=== PATIENT | female | born 1935 | race Two or more races ===

== ENCOUNTER 2017-10-17 09:29 | Outpatient (CLI) | payer OTHER ==
[~2017-10-17] VITALS: Ht 152.4 cm; Wt 68.0 kg
== END 2017-10-17 09:45 | disposition home or self-care (01) ==
LOC: OFIC 805 09:29
DX: R42 Dizziness and giddiness (principal); H90.3 Sensorineural hearing loss, bilateral; E04.1 Nontoxic single thyroid nodule

== ENCOUNTER → 2017-10-17 | Outpatient (CLI) | payer OTHER ==
[~2017-10-17] MED LIST: BACTROBAN OINT22 GM TP; CATAFLAM50 MG PO; CLEOCIN HCL300 MG PO
== END | disposition home or self-care (01) ==
LOC: SONOGRAMA 12:22
DX: E04.1 Nontoxic single thyroid nodule (principal)

== ENCOUNTER 2017-11-07 09:43 | Outpatient (CLI) | payer OTHER ==
[~2017-11-07] VITALS: Ht 152.4 cm; Wt 68.0 kg
== END 2017-11-07 10:00 | disposition home or self-care (01) ==
LOC: OFIC 805 09:43
DX: H90.3 Sensorineural hearing loss, bilateral (principal); R42 Dizziness and giddiness; E04.1 Nontoxic single thyroid nodule

== ENCOUNTER 2017-11-10 09:29 | Outpatient (CLI) | payer OTHER | END 2017-11-10 09:42 | disposition home or self-care (01) | LOC: SONOGRAMA 09:29 | DX: E04.2 Nontoxic multinodular goiter (principal) ==

== ENCOUNTER → 2017-11-28 | Outpatient (CLI) | payer OTHER ==
[~2017-11-28] VITALS: Ht 152.4 cm; Wt 68.0 kg
== END | disposition home or self-care (01) ==
LOC: OFIC 805 08:05
DX: E04.2 Nontoxic multinodular goiter (principal)

== ENCOUNTER → 2017-12-15 | Outpatient (CLI) | payer OTHER | END | disposition home or self-care (01) | LOC: PPH VACUNA 15:06 | DX: Z23 Encounter for immunization (principal) | CPT/HCPCS: 90472; 90674; 90715; G0008 ==

== ENCOUNTER 2018-04-03 09:35 | Outpatient (CLI) | payer OTHER ==
[~2018-04-03] VITALS: Ht 152.4 cm; Wt 68.0 kg
== END 2018-04-03 09:50 | disposition home or self-care (01) ==
LOC: OFIC 805 09:35
DX: H90.3 Sensorineural hearing loss, bilateral (principal); H61.23 Impacted cerumen, bilateral; J31.0 Chronic rhinitis

== ENCOUNTER 2018-04-29 12:03 | Outpatient (CLI) | payer OTHER | END 2018-04-29 12:07 | disposition home or self-care (01) | LOC: MAMO-SONO 12:03 → OFIC 805 08-31 08:00 | DX: Z12.31 Encounter for screening mammogram for malignant neoplasm of breast (principal); Z87.898 Personal history of other specified conditions; N64.4 Mastodynia ==

== ENCOUNTER 2018-07-31 10:15 | Outpatient (CLI) | payer OTHER ==
[~2018-07-31] VITALS: Ht 152.4 cm; Wt 68.0 kg
== END 2018-07-31 10:30 | disposition home or self-care (01) ==
LOC: OFIC 805 10:15
DX: H61.23 Impacted cerumen, bilateral (principal); H90.3 Sensorineural hearing loss, bilateral; J31.0 Chronic rhinitis

== ENCOUNTER 2018-12-04 10:01 | Outpatient (CLI) | payer OTHER ==
[~2018-12-04] VITALS: Ht 152.4 cm; Wt 68.0 kg
== END 2018-12-04 10:15 | disposition home or self-care (01) ==
LOC: OFIC 805 10:01
DX: J31.0 Chronic rhinitis (principal); H61.23 Impacted cerumen, bilateral; H90.3 Sensorineural hearing loss, bilateral; R42 Dizziness and giddiness

== ENCOUNTER 2018-12-29 05:50 | Day surgery (SDC) | payer OTHER ==
[~2018-12-29 05:50] MED LIST changes: +ALENDRONATE SOD70 MG PO; +AMILODIPINE PO; +ASA81 MG PO; +BENAZEPRIL HCL10 MG PO; +PRAVACHOL80 MG PO; +SINGULAIR10 MG PO; +TIROSINT50 MCG PO
== END 2018-12-29 10:30 | disposition home or self-care (01) ==
LOC: CIR.AMB 05:50
DX: G56.01 Carpal tunnel syndrome, right upper limb (principal)

== ENCOUNTER 2019-03-10 11:07 | Outpatient (CLI) | payer OTHER | END 2019-03-10 11:13 | disposition home or self-care (01) | LOC: NUCLEAR 11:07 | DX: M81.0 Age-related osteoporosis without current pathological fracture (principal) ==

== ENCOUNTER 2019-04-09 10:56 | Outpatient (CLI) | payer OTHER | END 2019-04-09 11:09 | disposition home or self-care (01) | LOC: RAD 10:56 | DX: M17.0 Bilateral primary osteoarthritis of knee (principal) ==

== ENCOUNTER 2019-04-09 11:42 | Outpatient (CLI) | payer OTHER | END 2019-04-09 13:00 | disposition home or self-care (01) | LOC: SONOGRAMA 11:42 | DX: M65.811 Other synovitis and tenosynovitis, right shoulder (principal) ==

== ENCOUNTER 2019-04-30 09:36 | Outpatient (CLI) | payer OTHER | END 2019-04-30 09:46 | disposition home or self-care (01) | LOC: MAMO-SONO 09:36 | DX: Z12.31 Encounter for screening mammogram for malignant neoplasm of breast (principal); Z87.898 Personal history of other specified conditions; N64.4 Mastodynia ==

== ENCOUNTER → 2019-10-04 | Outpatient (CLI) | payer OTHER | END | disposition home or self-care (01) | LOC: RAD 13:23 | DX: M20.42 Other hammer toe(s) (acquired), left foot (principal); M20.41 Other hammer toe(s) (acquired), right foot ==

== ENCOUNTER 2020-05-01 12:22 | Outpatient (CLI) | payer OTHER | END 2020-05-01 12:34 | disposition home or self-care (01) | LOC: MAMO-SONO 12:22 | PROVIDERS: ATTEND General Practice | DX: Z12.31 Encounter for screening mammogram for malignant neoplasm of breast (principal); N64.4 Mastodynia ==

== ENCOUNTER 2021-01-29 12:56 | Outpatient (CLI) | payer OTHER | END 2021-01-29 13:15 | disposition home or self-care (01) | LOC: MRI 12:56 | DX: M23.301 Other meniscus derangements, unspecified lateral meniscus, left knee (principal); M23.303 Other meniscus derangements, unspecified medial meniscus, right knee; M23.002 Cystic meniscus, unspecified lateral meniscus, unspecified knee | CPT/HCPCS: 73721 ==

== ENCOUNTER 2021-03-29 14:36 | Outpatient (CLI) | payer OTHER | END 2021-03-29 14:43 | disposition home or self-care (01) | LOC: NUCLEAR 14:36 | PROVIDERS: ATTEND General Practice | DX: M81.0 Age-related osteoporosis without current pathological fracture (principal) ==

== ENCOUNTER 2021-05-03 14:13 | Outpatient (CLI) | payer OTHER | END 2021-05-03 14:51 | disposition home or self-care (01) | LOC: MAMO-SONO 14:13 | PROVIDERS: ATTEND General Practice | DX: Z12.31 Encounter for screening mammogram for malignant neoplasm of breast (principal); N64.4 Mastodynia; N64.59 Other signs and symptoms in breast ==

== ENCOUNTER 2021-07-24 12:41 | Outpatient (CLI) | payer OTHER | END 2021-07-24 12:49 | disposition home or self-care (01) | LOC: MRI 12:41 | PROVIDERS: ATTEND Physical Medicine & Rehabilitation | DX: M47.897 Other spondylosis, lumbosacral region (principal); M54.16 Radiculopathy, lumbar region | CPT/HCPCS: 72148 ==

== ENCOUNTER → 2021-08-22 | Outpatient (CLI) | payer OTHER | END | disposition home or self-care (01) | LOC: TOM 08:59 | PROVIDERS: ATTEND Internal Medicine | DX: K76.0 Fatty (change of) liver, not elsewhere classified (principal); Q61.02 Congenital multiple renal cysts; R10.84 Generalized abdominal pain; F06.2 Psychotic disorder with delusions due to known physiological condition | CPT/HCPCS: 74177; Q9965 ==

== ENCOUNTER 2021-10-26 14:02 | Outpatient (CLI) | payer OTHER | END 2021-10-26 14:10 | disposition home or self-care (01) | LOC: RAD 14:02 | PROVIDERS: ATTEND Physical Medicine & Rehabilitation | DX: M25.571 Pain in right ankle and joints of right foot (principal); M25.572 Pain in left ankle and joints of left foot ==

== ENCOUNTER 2021-12-18 13:04 | Outpatient (CLI) | payer OTHER | END 2021-12-18 14:00 | disposition home or self-care (01) | LOC: MRI 13:04 | PROVIDERS: ATTEND Internal Medicine | DX: I63.9 Cerebral infarction, unspecified (principal) | CPT/HCPCS: 70551 ==

== ENCOUNTER 2022-05-22 14:48 | Outpatient (CLI) | payer OTHER | END 2022-05-22 14:49 | disposition home or self-care (01) | LOC: MAMO-SONO 14:48 | DX: Z12.31 Encounter for screening mammogram for malignant neoplasm of breast (principal); N60.11 Diffuse cystic mastopathy of right breast; N60.12 Diffuse cystic mastopathy of left breast ==

== ENCOUNTER 2023-01-01 10:40 | Outpatient (CLI) | payer OTHER | END 2023-01-01 13:50 | disposition home or self-care (01) | LOC: MRI 10:40 | PROVIDERS: ATTEND Neuromusculoskeletal Medicine & OMM | DX: R20.2 Paresthesia of skin (principal); I72.9 Aneurysm of unspecified site; I65.1 Occlusion and stenosis of basilar artery; I65.09 Occlusion and stenosis of unspecified vertebral artery; I65.29 Occlusion and stenosis of unspecified carotid artery; Q28.2 Arteriovenous malformation of cerebral vessels | CPT/HCPCS: 70544; 70551 ==

== ENCOUNTER 2023-02-10 09:56 | Outpatient (CLI) | payer OTHER | END 2023-02-10 10:02 | disposition home or self-care (01) | LOC: RX STUDY 09:56 | PROVIDERS: ATTEND Internal Medicine Hepatology | DX: R19.4 Change in bowel habit (principal) ==

== ENCOUNTER 2023-05-09 13:36 | Outpatient (CLI) | payer OTHER | END 2023-05-09 13:40 | disposition home or self-care (01) | LOC: NUCLEAR 13:36 | DX: M81.0 Age-related osteoporosis without current pathological fracture (principal); M81.8 Other osteoporosis without current pathological fracture ==

== ENCOUNTER 2023-06-10 13:10 | Outpatient (CLI) | payer OTHER | END 2023-06-10 13:25 | disposition home or self-care (01) | LOC: MAMO-SONO 13:10 | PROVIDERS: ATTEND Obstetrics & Gynecology | DX: N60.11 Diffuse cystic mastopathy of right breast (principal); N60.12 Diffuse cystic mastopathy of left breast; Z12.31 Encounter for screening mammogram for malignant neoplasm of breast ==

== ENCOUNTER 2023-10-27 13:09 | Outpatient (CLI) | payer OTHER | END 2023-10-27 13:17 | disposition home or self-care (01) | LOC: TOM 13:09 | PROVIDERS: ATTEND Internal Medicine Gastroenterology | DX: R10.9 Unspecified abdominal pain (principal); E03.9 Hypothyroidism, unspecified; K29.70 Gastritis, unspecified, without bleeding; R42 Dizziness and giddiness; E07.9 Disorder of thyroid, unspecified ==

== ENCOUNTER 2023-11-17 10:52 | Outpatient (CLI) | payer OTHER | END 2023-11-17 10:56 | disposition home or self-care (01) | LOC: MRI 10:52 | PROVIDERS: ATTEND Internal Medicine | DX: M54.2 Cervicalgia (principal); M54.50 Low back pain, unspecified | CPT/HCPCS: 72141; 72148 ==

== ENCOUNTER 2024-06-11 14:51 | Outpatient (CLI) | payer OTHER | END 2024-06-11 15:00 | disposition home or self-care (01) | LOC: MAMO-SONO 14:51 | PROVIDERS: ATTEND Obstetrics & Gynecology | DX: N60.11 Diffuse cystic mastopathy of right breast (principal); N60.12 Diffuse cystic mastopathy of left breast; Z12.31 Encounter for screening mammogram for malignant neoplasm of breast ==

== ENCOUNTER 2024-07-13 14:05 | Outpatient (CLI) | payer OTHER | END 2024-07-13 14:14 | disposition home or self-care (01) | LOC: RAD 14:05 | PROVIDERS: ATTEND Physical Medicine & Rehabilitation | DX: M25.512 Pain in left shoulder (principal); M25.561 Pain in right knee ==

== ENCOUNTER 2025-03-15 13:45 | Outpatient (CLI) | payer OTHER | END 2025-03-15 13:47 | disposition home or self-care (01) | LOC: RAD 13:45 | PROVIDERS: ATTEND Physical Medicine & Rehabilitation | DX: M54.59 Other low back pain (principal); M25.552 Pain in left hip; M25.562 Pain in left knee ==

== ENCOUNTER 2025-04-22 08:46 | Emergency (ER) | payer OTHER ==
[~2025-04-22] VITALS: Ht 152.4 cm; Wt 57.6 kg
[2025-04-22 10:04] VITALS: BP 123/75; O2SAT 95
[2025-04-22] MEDS ORDERED: ROSUVASTATIN CA40 MG PO (10:07)
[2025-04-22] MEDS ORDERED: PEPCID AC20 MG (10:09)
[2025-04-22] MEDS ORDERED: NABUMETONE750 MG (10:10)
[2025-04-22] MEDS ORDERED: TYLENOL ARTHRI650 MG (10:10)
[2025-04-22] MEDS ORDERED: FLONASE SENSIM5.9 ML NS (10:11)
[2025-04-22] MEDS ORDERED: DORZOLAMIDE HCL10 ML (10:13)
[2025-04-22] MEDS ORDERED: BRIMONIDINE TART5 ML (10:13)
[2025-04-22] MEDS ORDERED: MORPHINE SULFATE 4 MG/ML VIAL IV ONE (10:45)
[2025-04-22] MEDS ORDERED: DEXAMETHASONE SODIUM PHOSPHATE 4 MG/ML VIAL ONE (13:25)
[2025-04-22] MEDS ORDERED: DEXAMETHASONE SODIUM PHOSPHATE 4 MG/ML VIAL IM ONE (13:30)
== END 2025-04-22 13:46 | disposition home or self-care (01) ==
LOC: ER 08:46
DX: M54.89 Other dorsalgia (principal); M51.369 Other intervertebral disc degeneration, lumbar region without mention of lumbar back pain or lower extremity pain; M51.26 Other intervertebral disc displacement, lumbar region; I70.8 Atherosclerosis of other arteries; N28.1 Cyst of kidney, acquired; N20.0 Calculus of kidney; Z87.09 Personal history of other diseases of the respiratory system; Z88.6 Allergy status to analgesic agent; Z88.0 Allergy status to penicillin; Z91.013 Allergy to seafood
CPT/HCPCS: 72131; 93005; 96365; 96372; 99283; J1100; J2270

== ENCOUNTER 2025-07-29 09:25 | Outpatient (CLI) | payer OTHER ==
[~2025-07-29 09:25] MED LIST changes: +BRIMONIDINE TART5 ML; +DORZOLAMIDE HCL10 ML; +FLONASE SENSIM5.9 ML NS; +NABUMETONE750 MG; +PEPCID AC20 MG; +ROSUVASTATIN CA40 MG PO; +TYLENOL ARTHRI650 MG
== END 2025-07-29 09:35 | disposition home or self-care (01) ==
LOC: SONOGRAMA 09:25
PROVIDERS: ATTEND Internal Medicine Nephrology
DX: N18.2 Chronic kidney disease, stage 2 (mild) (principal); N39.3 Stress incontinence (female) (male)